=== PATIENT | female | born 1960 | race Caucasian/White ===

== ENCOUNTER → 2020-03-13 | Outpatient (CLI) | payer OTHER ==
[~2020-03-13] MED LIST: ACET325 PO; ASPI81CH PO; CELE100 PO; CHOL10002 PO; CIPR500 PO; CITA20 PO; CLON1 PO; CLON2 PO; CYAN100 PO; CYAN1000 PO; DIAZ5 PO; DIPATR PO; ERGO400 PO; FISH1000 PO; HYDACE10B PO; HYDACE5 PO; HYDR1TAB94 PO; LEVSOD50 PO; MECL25 PO; METR500 PO; NAPR550 PO; OXYB5 PO; POTCHL20ER PO; PRAV10 PO; PRAV20 PO; PROM25 PO; SACC250C PO; STOMACH PILL; TRAZ100 PO; [UNRECOGNIZED DRUG - REMARK]; [UNRECOGNIZED DRUG - REMARK]; [UNRECOGNIZED DRUG - REMARK]; [UNRECOGNIZED DRUG - REMARK]
== END | disposition home or self-care (01) ==
LOC: PLD 10:58 → LAB SHORT 10:58
DX: D48.5 Neoplasm of uncertain behavior of skin (principal)
CPT/HCPCS: 88305; 88313